=== PATIENT | male | born 2000 | race Caucasian/White ===

== ENCOUNTER 2021-12-03 07:54 | Emergency (ER) | payer OTHER | END 2021-12-03 08:30 | disposition home or self-care (01) | LOC: FB.ED 07:54 | DX: S63.256A Unspecified dislocation of right little finger, initial encounter (principal); X50.1XXA Overexertion from prolonged static or awkward postures, initial encounter | CPT/HCPCS: 26770; 73140-F9; 99283; 99283-25 ==